=== PATIENT | female | born 1995 | race Caucasian/White ===

== ENCOUNTER 2024-02-19 14:35 | Inpatient (IN) | payer MEDICAID ==
[~2024-02-19] VITALS: Ht 154.9 cm; Wt 70.8 kg
[2024-02-19] MEDS ORDERED: PREN-543 PO (15:18)
[2024-02-19] MEDS ORDERED: NALBUPHINE 10 MG/ML AMP IVP PRN (15:20)
[2024-02-19] MEDS ORDERED: METHYLERGONOVINE 0.2 MG/ML AMP IM PRN (15:20)
[2024-02-19] MEDS ORDERED: LACTATED RINGERS 500 ML IV SCH (15:20)
[2024-02-19] MEDS ORDERED: CARBOPROST 250 MCG/ML AMP IM PRN (15:20)
[2024-02-19] MEDS ORDERED: OXYTOCIN 10 UNITS/ML VIAL IM SCH (15:20)
[2024-02-19] MEDS ORDERED: MISOPROSTOL 25 MCG TAB VG SCH (16:00)
[2024-02-19 16:26] LABS: APPEARANCE,URINE CLEAR (CLEAR); BILIRUBIN,URINE NEGATIVE (NEGATIVE); BLOOD, URINE NEGATIVE (NEGATIVE); COLOR,URINE YELLOW (YELLOW); LEUKOCYTE ESTERASE ,URINE TRACE (NEGATIVE); NITRITE, URINE NEGATIVE (NEGATIVE); PROTEIN,URINE NEGATIVE (NEGATIVE); UGLUCOSE NEGATIVE (NEGATIVE); UROBILINOGEN,URINE 0.2 EU/dL (0.2 - 1)
[2024-02-19 16:28] LABS: BASOPHILS % (AUTO) 0.1 % (0.0-2.0); EOSINOPHILS # (AUTO) 0.1 K/uL (0-0.4); EOSINOPHILS % (AUTO) 1.3 % (0.0-4.0); HEMATOCRIT 32.8 % (36-48); LYMPHOCYTES % (AUTO) 10.3 % (20.5-51.1); MEAN CORPUSCULAR HEMOGLOBIN 30 pg (27-31); MEAN CORPUSCULAR HGB CONC 33 g/dL (33-37); MONOCYTES # (AUTO) 0.6 K/uL (0.8-1.0); MONOCYTES % (AUTO) 6.8 % (1.7-9.3); NEUTROPHILS # (AUTO) 7.6 K/uL (1.8-7.7); NEUTROPHILS % (AUTO) 81.5 % (42.2-75.2); PLATELET COUNT (AUTO) 112 K/uL (140-450); RED BLOOD CELL COUNT(AUTO) 3.65 MIL/uL (4.20-5.40); RED CELL DISTRIBUTION WIDTH 14.7 % (11.6-13.7); WHITE BLOOD COUNT (AUTO) 9.4 K/uL (4.8-10.8)
[2024-02-19 16:34] LABS: BACTERIA,URINE 1+ /HPF (None Seen); MUCUS,URINE 1+ /LPF (None Seen); RBC,URINE 0-5 /HPF (0-5); SQUAMOUS EPITHELIAL CELL,UR 20-50 /LPF (0-3 (FEW)); TRICHOMONAS,URINE None Seen /HPF (None Seen); YEAST,URINE None Seen /HPF (None Seen)
[2024-02-19 16:39] LABS: INR 0.86 (0.8-1.2); PARTIAL THROMBOPLASTIN TIME 25.2 secs (22-35.6); PROTHROMBIN TIME 9.1 secs (10.8-13.4)
[2024-02-19] MEDS: LACTATED RINGERS 1,000 ML IV SCH (16:41)
[2024-02-19 16:42] LABS: ALBUMIN 2.5 g/dL (3.4-5.0); ANION GAP 13.8 (8-16); CALCIUM 8.4 mg/dL (8.5-10.1); CARBON DIOXIDE 23.9 mmol/L (21-32); CREATININE 0.6 mg/dL (0.6-1.3); POTASSIUM 3.7 mmol/L (3.5-5.1); TOTAL BILIRUBIN 0.1 mg/dL (0.0-1.0); TOTAL PROTEIN, SERUM 6.1 g/dL (6.4-8.2)
[2024-02-19 16:48] VITALS: BP 123/73; PULSE 86; RESP 18; TEMP 98.1
[2024-02-19] MEDS ORDERED: AMPICILLIN 2,000 MG VIAL ONE (16:51)
[2024-02-19] MEDS: AMPICILLIN 2,000 MG in NACL 0.9% MINI-BAG PLUS 100 ML IV SCH (16:55)
[2024-02-19] MEDS ORDERED: AMPICILLIN 1,000 MG VIAL ONE (20:54)
[2024-02-19] MEDS: AMPICILLIN 1,000 MG in NACL 0.9% MINI-BAG PLUS 50 ML IV SCH (21:02)
[2024-02-19] MEDS ORDERED: ROPIVACAINE 0.2%/NS PREMIX 200 ML EPI SCH (22:40)
[2024-02-19] MEDS ORDERED: ROPIVACAINE 0.2%/NS PREMIX 200 ML EPI ONE (23:09)
[2024-02-20] MEDS ORDERED: AMPICILLIN 1,000 MG VIAL ONE ×3 (00:56→11:47)
[2024-02-20] MEDS: OXYTOCIN/0.9 % SODIUM CHLORIDE 500 ML IV SCH (08:06)
[2024-02-20] MEDS ORDERED: METHYLERGONOVINE 0.2 MG/ML AMP IM PRN (12:30)
[2024-02-20] MEDS ORDERED: oxyCODONE/APAP 5/325 MG 1 TAB TAB PO PRN ×2 (12:30)
[2024-02-20] MEDS ORDERED: METHYLERGONOVINE 0.2 MG TAB PO PRN (12:30)
[2024-02-20] MEDS ORDERED: OXYTOCIN 10 UNITS/ML VIAL IM PRN (12:30)
[2024-02-20] MEDS ORDERED: IBUPROFEN 800 MG TAB PO PRN (12:30)
[2024-02-20] MEDS ORDERED: BENZOCAINE/MENTHOL 20%-0.5% 60 GM CAN TP PRN (12:30)
[2024-02-20] MEDS ORDERED: TEMAZEPAM 15 MG CAP PO PRN (12:30)
[2024-02-20] MEDS: DOCUSATE SOD/SENNA 50/8.6 MG 1 TAB PO SCH (21:04)
[2024-02-21 05:31] LABS: HEMATOCRIT 26.9 % (36-48); HEMOGLOBIN 8.8 g/dL (12.0-16.0)
== END 2024-02-22 16:06 | disposition home or self-care (01) | DRG 560 ==
LOC: MLD 14:35 → MFCC 02-20 15:10
PROVIDERS: ADMIT Obstetrics & Gynecology; ATTEND Obstetrics & Gynecology
PROC: 0HQ9XZZ Repair Perineum Skin, External Approach (ICD-10-PCS; principal; 2024-02-20)
PROC: 10D07Z6 Extraction of Products of Conception, Vacuum, Via Natural or Artificial Opening (ICD-10-PCS; 2024-02-20)
PROC: 3E0R3BZ Introduction of Anesthetic Agent into Spinal Canal, Percutaneous Approach (ICD-10-PCS; 2024-02-20)
PROC: 00HU33Z Insertion of Infusion Device into Spinal Canal, Percutaneous Approach (ICD-10-PCS; 2024-02-20)
DX: O48.0 Post-term pregnancy (principal); Z37.0 Single live birth; R71.0 Precipitous drop in hematocrit; O70.0 First degree perineal laceration during delivery; Z3A.41 41 weeks gestation of pregnancy
CPT/HCPCS: 36415; 51702; 80053; 81001; 85018; 85025; 85610; 85730; 86592; 86850; 86886; 86900; 86901; 87086; J0290; J2590; J2790; J2795